=== PATIENT | female | born 1960 | race Caucasian/White ===

== ENCOUNTER 2022-04-15 07:51 | Outpatient (REF) | payer MEDICARE, MEDICAID, SELFPAY ==
--- NOTE | ~2022-04-15 | XR_ITS ---
EXAMINATION: 1. RADIOGRAPHS LEFT KNEE 2. RADIOGRAPHS RIGHT KNEE 3. RADIOGRAPHS STANDING BILATERAL AP KNEES CLINICAL INFORMATION: Knee pain COMPARISON: None TECHNIQUE: Standing AP views of both knees were obtained. Additional lateral and patellar sunrise views of each knee were also obtained. FINDINGS: Right knee: No fracture or dislocation. No suprapatellar joint effusion. Mild narrowing of the medial joint space height in addition to the patellofemoral joint space. No large osteophytes. No focal soft tissue swelling of the anterior knee. Left knee: No fracture or dislocation. No suprapatellar joint effusion. Mild narrowing of the medial joint space height in addition to the patellofemoral joint space. No large osteophytes identified. No focal soft tissue swelling of the anterior knee. XR/XR knee RT 2V IMPRESSION: Mild degenerative changes of both knees particularly involving the medial and patellofemoral compartments.
--- NOTE | ~2022-04-15 | XR_ITS ---
EXAMINATION: 1. RADIOGRAPHS LEFT KNEE 2. RADIOGRAPHS RIGHT KNEE 3. RADIOGRAPHS STANDING BILATERAL AP KNEES CLINICAL INFORMATION: Knee pain COMPARISON: None TECHNIQUE: Standing AP views of both knees were obtained. Additional lateral and patellar sunrise views of each knee were also obtained. FINDINGS: Right knee: No fracture or dislocation. No suprapatellar joint effusion. Mild narrowing of the medial joint space height in addition to the patellofemoral joint space. No large osteophytes. No focal soft tissue swelling of the anterior knee. Left knee: No fracture or dislocation. No suprapatellar joint effusion. Mild narrowing of the medial joint space height in addition to the patellofemoral joint space. No large osteophytes identified. No focal soft tissue swelling of the anterior knee. XR/XR knee standing BI IMPRESSION: Mild degenerative changes of both knees particularly involving the medial and patellofemoral compartments.
--- NOTE | ~2022-04-15 | XR_ITS ---
EXAMINATION: 1. RADIOGRAPHS LEFT KNEE 2. RADIOGRAPHS RIGHT KNEE 3. RADIOGRAPHS STANDING BILATERAL AP KNEES CLINICAL INFORMATION: Knee pain COMPARISON: None TECHNIQUE: Standing AP views of both knees were obtained. Additional lateral and patellar sunrise views of each knee were also obtained. FINDINGS: Right knee: No fracture or dislocation. No suprapatellar joint effusion. Mild narrowing of the medial joint space height in addition to the patellofemoral joint space. No large osteophytes. No focal soft tissue swelling of the anterior knee. Left knee: No fracture or dislocation. No suprapatellar joint effusion. Mild narrowing of the medial joint space height in addition to the patellofemoral joint space. No large osteophytes identified. No focal soft tissue swelling of the anterior knee. XR/XR knee LT 2V IMPRESSION: Mild degenerative changes of both knees particularly involving the medial and patellofemoral compartments.
== END 2022-04-15 07:52 | disposition home or self-care (01) ==
LOC: HO.HOSX 07:51
PROVIDERS: Visit Provider Orthopaedic Surgery
DX: M17.0 Bilateral primary osteoarthritis of knee (principal); G62.9 Polyneuropathy, unspecified
CPT/HCPCS: 20610; 73560; 73565; 99202; J1100

== ENCOUNTER → 2022-06-28 12:51 | Outpatient (BNVA) | payer MEDICARE, MEDICAID, SELFPAY | PROVIDERS: PCP Family Medicine; Visit Provider Nurse Practitioner Family | DX: G43.909 Migraine, unspecified, not intractable, without status migrainosus (principal); M54.2 Cervicalgia; R25.1 Tremor, unspecified; G47.9 Sleep disorder, unspecified | CPT/HCPCS: 99202 ==

== ENCOUNTER → 2022-09-06 13:30 | Outpatient (BNVA) | payer MEDICARE, MEDICAID, SELFPAY | PROVIDERS: PCP Family Medicine; Visit Provider Nurse Practitioner Family | DX: G43.909 Migraine, unspecified, not intractable, without status migrainosus (principal); M54.2 Cervicalgia; R25.1 Tremor, unspecified; Z79.899 Other long term (current) drug therapy | CPT/HCPCS: 99212 ==

== ENCOUNTER → 2022-11-22 14:30 | Outpatient (BNVA) | payer OTHER, SELFPAY | PROVIDERS: PCP Family Medicine; Visit Provider Nurse Practitioner Family | DX: G43.909 Migraine, unspecified, not intractable, without status migrainosus (principal); F90.9 Attention-deficit hyperactivity disorder, unspecified type; F41.9 Anxiety disorder, unspecified; M54.2 Cervicalgia | CPT/HCPCS: 99212 ==

== ENCOUNTER → 2023-10-26 15:54 | Outpatient (BNVA) | payer MEDICAID, SELFPAY | PROVIDERS: PCP Family Medicine; Visit Provider Nurse Practitioner Family ==

== ENCOUNTER 2023-11-09 13:01 | Outpatient (REF) | payer MEDICARE, MEDICAID, SELFPAY ==
--- NOTE | 2023-11-09 13:06 | EEG_ITS ---
FINDINGS: Waking background activity consists of a moderate voltage, well-defined, 10-hertz posterior alpha frequency that is seen symmetrically and attenuates well with eye opening while low voltage fast frequencies predominate anteriorly. Photic stimulation is without activation. Hyperventilation was omitted. No focal, lateralizing, or paroxysmal discharges are seen. IMPRESSION: This waking EEG is within normal limits. MD SERENITY Dacosta/ASYA / [phone]
== END 2023-11-09 13:02 | disposition home or self-care (01) ==
LOC: HO.NEURO 13:01
PROVIDERS: Visit Provider Nurse Practitioner Family
DX: R56.9 Unspecified convulsions (principal); G93.0 Cerebral cysts
CPT/HCPCS: 95816

== ENCOUNTER 2023-11-30 12:40 | Outpatient (AMB) | payer MEDICAID, SELFPAY ==
[2023-11-30 13:04] VITALS: BP 118/74; PULSE 70; O2SAT 96; BMI 28.5
--- NOTE | 2023-11-30 13:04 | MHC.OFFVIS ---
Intake Vital Signs 11/30/23 13:04 Height 5 ft 7 in Weight 182 lb 2 oz BMI 28.5 BP 118/74 Blood Pressure Location Rt brachial Position Sitting Pulse 70 Pulse Source Pulse Oximeter Pulse Oximetry (%) 96 Oxygen Delivery Method Room Air Intake Visit Reasons: follow up-Confirmed Intake Note: Patient presents for follow up. I had a seizure and she started me on the meds. Allergies omeprazole Allergy (Verified 11/30/23 13:07) Hives Penicillins Allergy (Verified 11/30/23 13:07) Hives Sulfa (Sulfonamide Antibiotics) Allergy (Verified 11/30/23 13:07) Hives Medication List - Last Reconciled 11/30/23 by YOANNA Maya albuterol sulfate 90 mcg/actuation (Ventolin HFA) 2 puffs inhalation Q4-6H PRN atorvastatin 40 mg PO DAILY 90 days baclofen 10 - 20 mg (1 - 2 x 10 mg) PO BID 30 days bupropion HCl 300 mg PO DAILY 90 days cyclosporine 0.05% naeem ophthalmic (eye) famotidine 40 mg PO BID fluticasone propionate 44 mcg/actuation (Flovent HFA) inhalation furosemide 0 mg PO gabapentin 400 mg PO BEDTIME 30 days galcanezumab-gnlm (Emgality Pen) 120 mg subcut ONCE 30 days ibuprofen 1,200 mg PO BID PRN levetiracetam (Keppra) 500 mg PO Q12H 30 days loratadine-pseudoephedrine 10-240 mg ER (Allergy Relief and Nasal Decongestant) 0 tabs PO magnesium oxide 400 mg PO BEDTIME 30 days nicotine 1 patch transdermal DAILY PRN ondansetron 2 mg PO Q6-8H PRN ondansetron 8 mg PO Q8H PRN 30 days riboflavin (vitamin B2) 400 mg PO DAILY 30 days rimegepant (Nurtec ODT) 75 mg PO Q OTHER DAY PRN 32 days rizatriptan 5 - 10 mg (0.5 - 1 x 10 mg) PO Q2H PRN 21 days HPI HPI Comments History of Present Illness Details 63-yr-old female presents for f/u visit. Pt denies any significant interval medical changes. Pt does think that she has a UTI or kidney infection, she has had increased urinary frequency and urgency x's the past month or more. Denies back pain or dysuria. Not sure if she has a fever- can feel hot or cold- for quite some time- thinks maybe menopausal s/s. She states she is prone to UTIs and has also had h/o kidney infection. Baseline EEG- was normal F/u 48 hr EEG has been scheduled for 12/04/23 She has not heard anything on the requested MRI. Denies any interval seizures. She has started Keppra 500mg bid- tolerating well She is hoping to try an alternate to baclofen for muscle spasms- as baclofen has not helped. In the past she tried Lorazepam, which helped sleep and anxiety. [facility] Medical History (Reviewed 11/22/22 @ 14:53 by Anika Caballero [facility]) Anemia Arthritis Asthma GERD (gastroesophageal reflux disease) Thyroid disease Surgical History H/O tubal ligation History of cholecystectomy Family History Mother Diabetes Breast cancer TIA (transient ischemic attack) Father Cancer Social History Alcohol intake: current Alcohol intake frequency: holidays/special occasions only Patient Tobacco Use Status: Former Tobacco user Quit Date: 09/04/2022 Substance Use Type: Marijuana Current occupational status: disabled Review of Systems Const All systems reviewed & are unremarkable except as noted in HPI and below Physical Exam Vital Signs: Last Vital Signs Pulse 70 11/30/23 13:04 BP 118/74 11/30/23 13:04 Pulse Ox 96 11/30/23 13:04 Oxygen Delivery Method Room Air 11/30/23 13:04 BMI result Body Mass Index 28.5 Const General: cooperative and no acute distress Orientation/consciousness: patient oriented x3 HEENT Head: Yes normocephalic Resp Effort & Inspection: normal respiratory effort and able to speak in complete sentences Neuro General: patient oriented x3, gait normal and CN's II-XI intact bilaterally Cognition (Neuro): normal cognition Motor exam (neuro): 5/5 motor strength present throughout Psych Appearance: grossly normal Mental Status: mental status grossly normal Speech and movement: Normal speech and movement present Affect: normal affect Attitude: cooperative Thought process: Normal thought process present Assessment & Plan Assessment & Plan (1) Seizure: Code(s): R56.9 - Unspecified convulsions (2) Arachnoid cyst: Code(s): G93.0 - Cerebral cysts (3) Sleep disorder: Code(s): G47.9 - Sleep disorder, unspecified (4) Migraine: Code(s): G43.909 - Migraine, unspecified, not intractable, without status migrainosus Plan Pt has not done requested CBC, CMP- suggested she do this today as this could indicate if she has an active infection, however pt requests to wait to have labs done until next month when she meets her new PCP. Pt advised to f/u w/ PCP or urgent care regarding her ongoing urinary s/s. Continue Keppra 500mg bid. Continue to wean off Baclofen use to no more than 10mg qhs- as baclofen may lower seizure threshold. Consider changing to low dose diazepam upon review of 48 hr EEG. May continue Buproprion for now- will re-assess after work-up complete. 48 hr EEG as scheduled Will f/u on order for Brain MRI w/wo Again check CBC, CMP- lab slips given to pt. Pt advised to NOT drive or engage in high-risk activities (swimming/tub bathing alone, climbing ladders, operating heavy machinery) x's 6 months after last known seizure. f/u upon review of above and appt in 3-4 months or sooner prn. Coding Level of Care Code Est Pt Level 4 (24974) Diagnoses Seizure R56.9 Arachnoid cyst G93.0 Sleep disorder G47.9 Migraine G43.903
== END 2023-11-30 13:47 | disposition home or self-care (01) ==
PROVIDERS: PCP Family Medicine; Visit Provider Nurse Practitioner Family
DX: R56.9 Unspecified convulsions (principal); G93.0 Cerebral cysts; G47.9 Sleep disorder, unspecified; G43.909 Migraine, unspecified, not intractable, without status migrainosus
CPT/HCPCS: 99214

== ENCOUNTER → 2023-11-30 12:40 | Outpatient (BNVA) | payer MEDICARE, MEDICAID, SELFPAY | PROVIDERS: PCP Family Medicine; Visit Provider Nurse Practitioner Family | DX: R56.9 Unspecified convulsions (principal); G93.0 Cerebral cysts; G47.9 Sleep disorder, unspecified; G43.909 Migraine, unspecified, not intractable, without status migrainosus | CPT/HCPCS: 99212 ==

== ENCOUNTER 2024-04-01 13:01 | Outpatient (AMB) | payer MEDICARE, MEDICAID, SELFPAY ==
--- NOTE | 2024-04-01 13:01 | MHC.OFFVIS ---
Intake Visit Reasons: 4 mo f/u-Unable to lvm Allergies omeprazole Allergy (Verified 04/01/24 13:01) Hives Penicillins Allergy (Verified 04/01/24 13:01) Hives Sulfa (Sulfonamide Antibiotics) Allergy (Verified 04/01/24 13:01) Hives Medication List - Last Reconciled 04/01/24 by YOANNA Maya albuterol sulfate 90 mcg/actuation (Ventolin HFA) 2 puffs inhalation Q4-6H PRN atorvastatin 40 mg PO DAILY 90 days baclofen 10 - 20 mg (1 - 2 x 10 mg) PO BID 30 days bupropion HCl XL 300 mg PO DAILY 90 days cyclosporine 0.05% drps ophthalmic (eye) famotidine 40 mg PO BID fluticasone propionate 44 mcg/actuation (Flovent HFA) inhalation furosemide 0 mg PO gabapentin 400 mg PO BEDTIME 30 days galcanezumab-gnlm (Emgality Pen) 120 mg subcut ONCE 30 days ibuprofen 1,200 mg PO BID PRN levetiracetam (Keppra) 500 mg PO Q12H 30 days loratadine-pseudoephedrine 10-240 mg ER (Allergy Relief and Nasal Decongestant) 0 tabs PO magnesium oxide 400 mg PO BEDTIME 30 days nicotine 1 patch transdermal DAILY PRN ondansetron 2 mg PO Q6-8H PRN ondansetron 8 mg PO Q8H PRN 30 days riboflavin (vitamin B2) 400 mg PO DAILY 30 days rimegepant (Nurtec ODT) 75 mg PO Q OTHER DAY PRN 32 days rizatriptan 5 - 10 mg (0.5 - 1 x 10 mg) PO Q2H PRN 21 days HPI Comments Details: 64-yr-old female presents for f/u televideo visit via [employer] Pt denies any significant interval medical changes. Pt reports she has been having dizziness, more difficulty breathing, and sore throat- for at least a month. She also has been having nausea. And last week the dizziness increased and caused her to vomit. She feels her walking off when she walks her dog. Sometimes her foot will go off the curb. She wonders if the above s/s are d/t her keppra dose. She also notes she been taking Ibuprofen 800mg qd-bid prn- over the last week. She has been having migraines- she has been using the rizatriptan again. Notes that the Nurtec was previously more effective. She has been having a daily headache in the last week. Typically has 14 migraine headache days per month. Migraine characteristics: Prodrome symptoms: May have some awareness that a headache comes about 1-2 hrs before the headache comes on. Aura: May see floaters as headache is starting and persists. Vision may be blurry. Headache: Mild to Severe, Headache typically starts in occipital region and moves into frontal region. The pain is throbbing and stabbing a/w photophobia, phonophobia, blurry vision, ? nausea, brain fog, dizziness, activity intolerance. Postdrome: Fatigue PFSH Medical History Anemia Arthritis Asthma GERD (gastroesophageal reflux disease) Thyroid disease Surgical History H/O tubal ligation History of cholecystectomy Family History Mother Diabetes Breast cancer TIA (transient ischemic attack) Father Cancer Social History Alcohol intake: current Alcohol intake frequency: holidays/special occasions only Patient Tobacco Use Status: Former Tobacco user Quit Date: 09/04/2022 Substance Use Type: Marijuana Current occupational status: disabled Physical Exam Const General: cooperative and no acute distress Orientation/consciousness: patient oriented x3 Resp Effort & Inspection: normal respiratory effort and able to speak in complete sentences Neuro General: patient oriented x3 Cognition (Neuro): normal cognition Psych Appearance: grossly normal Mental Status: mental status grossly normal Speech and movement: Normal speech and movement present Affect: normal affect Attitude: cooperative Telehealth Telehealth Telehealth Platform: [employer] (P)[facility] Location of provider rendering services: practice address Location of patient: address on file Patient Identification confirmed using: Name, : Yes Telehealth method: voice only Patient verbally consented to treatment: Yes Patient verbally consented to billing insurance company: Yes Patient informed of any privacy concerns related to visit: Yes Minutes spent on Phone/Video with Pt.: 24 Assessment & Plan Assessment & Plan (1) Migraine without aura: Code(s): G43.009 - Migraine without aura, not intractable, without status migrainosus Category: Medical (2) Arachnoid cyst: Code(s): G93.0 - Cerebral cysts Category: Medical (3) Seizure: Code(s): R56.9 - Unspecified convulsions Category: Medical (4) ADHD: Code(s): F90.9 - Attention-deficit hyperactivity disorder, unspecified type Category: Medical Plan Baseline EEG. Pt has not yet has barin MRI w/wo or 48hr EEG- pt agrees to have these done. Pt has not had labs done yet. Discussed trying Oxcarbazapine (150mg bid x's 2 wks, then 300mg bid) in place of Keppra 500mg bid, as pt does not want to continue it. However pt states she will continue Keppra for now. Pt advised to NOT drive or engage in high-risk activities (swimming/tub bathing alone, climbing ladders, operating heavy machinery) x's 6 months after last known seizure. For acute migraine treatment: Rizatriptan 5-10 mg at onset of migraine, may repeat in 2 hours.? May adjunct with ibuprofen. Zofran 8mg ODT prn. Previous trials: Sumatriptan- ineffective. Future considerations- Ubrelvy. Sumatriptan- ineffective. For migraine prevention treatment: Continue riboflavin 400 mg daily in the morning.? Continue magnesium oxide 400 mg daily at bedtime.? Resume Nurtec ODT 75mg qod- as pt previously good effect. Pt never tried Emgality- she is needle phobic. Continue gabapentin 400 mg daily at bedtime- also for cervicalgia, tremor, muscle spasms. (higher doses make her legs shaky) Previous preventative medication use: Amitriptyline- stopped on transfer, not effective. Topiramate- was either not tolerated or ineffective. Will f/u on status of psych consult- for her ADD s/s management. f/u upon review of above and appt in 6 months or sooner prn. Medications: Refilled ondansetron 8 mg PO Q8H 30 days PRN 24 tabs 2RF nausea and vomiting rizatriptan max 2 tabs per day or 4 tabs per week 5 - 10 mg (0.5 - 1 x 10 mg) PO Q2H 21 days PRN 12 tabs 6RF migraine headache levetiracetam (Keppra) 500 mg PO Q12H 30 days 60 tabs 6RF Discontinued levetiracetam (Keppra) Discontinued Reason: Doctor's Order 500 mg PO Q12H 30 days 60 tabs 6RF galcanezumab-gnlm (Emgality Pen) Discontinued Reason: Patient no longer taking 120 mg subcut ONCE 30 days 1 mL 6RF G43.909 - Migraine, unspecified, not intractable, without status migrainosus Coding Level of Care Code Tele Est Pt Level 4 (46631) Diagnoses Migraine without aura G43.009 Arachnoid cyst G93.0 Seizure R56.9 ADHD F90.9
== END 2024-04-01 13:30 | disposition home or self-care (01) ==
LOC: HO.HSMS 13:01
PROVIDERS: PCP Family Medicine; Visit Provider Nurse Practitioner Family
DX: G43.009 Migraine without aura, not intractable, without status migrainosus (principal); G93.0 Cerebral cysts; R56.9 Unspecified convulsions; F90.9 Attention-deficit hyperactivity disorder, unspecified type
CPT/HCPCS: 99443

== ENCOUNTER → 2024-04-01 13:01 | Outpatient (BNVA) | payer MEDICARE, MEDICAID, SELFPAY | PROVIDERS: PCP Family Medicine; Visit Provider Nurse Practitioner Family ==

== ENCOUNTER 2024-10-22 10:18 | Outpatient (AMB) | payer MEDICARE, MEDICAID, SELFPAY ==
[2024-10-22 10:20] VITALS: BP 126/70; PULSE 84; O2SAT 98; BMI 28.2
--- NOTE | 2024-10-22 10:20 | A.OFFVIS_ITS ---
Vital Signs 10/22/24 10:20 Height 5 ft 7 in Weight 180 lb BMI 28.2 BP 126/70 Blood Pressure Location Rt brachial Position Sitting Pulse 84 Pulse Source Pulse Oximeter Pulse Oximetry (%) 98 Oxygen Delivery Method Room Air Intake Visit Reasons: 7 month F/U [employer] Required: No Accompanied by: Self / Same As Patient Allergies omeprazole Allergy (Verified 10/22/24 10:22) Hives Penicillins Allergy (Verified 10/22/24 10:22) Hives Sulfa (Sulfonamide Antibiotics) Allergy (Verified 10/22/24 10:22) Hives Medication List - Last Reconciled 10/22/24 by YOANNA Maya albuterol sulfate 90 mcg/actuation (Ventolin HFA) 2 puffs inhalation Q4-6H PRN atorvastatin 40 mg PO DAILY 90 days baclofen 10 - 20 mg (1 - 2 x 10 mg) PO BID 30 days bupropion HCl XL 300 mg PO DAILY 90 days cyclosporine 0.05% drps ophthalmic (eye) famotidine 40 mg PO BID PRN fluticasone propionate 44 mcg/actuation (Flovent HFA) inhalation furosemide 0 mg PO gabapentin 400 mg PO TID 30 days ibuprofen 1,200 mg PO BID PRN levetiracetam (Keppra) 500 mg PO Q12H 30 days loratadine-pseudoephedrine 10-240 mg ER (Allergy Relief and Nasal Decongestant) 0 tabs PO magnesium oxide 400 mg PO BEDTIME 30 days nicotine 1 patch transdermal DAILY PRN ondansetron 2 mg PO Q6-8H PRN ondansetron 8 mg PO Q8H PRN 30 days riboflavin (vitamin B2) 400 mg PO DAILY 30 days rimegepant (Nurtec ODT) 75 mg PO Q OTHER DAY 30 days rizatriptan 5 - 10 mg (0.5 - 1 x 10 mg) PO Q2H PRN 21 days HPI Comments Details: 64-yr-old female presents for f/u visit of migraine and seizure She states that she had an interval seizure on 07/24/24- she was sitting outside on a bench, she began to feel dizzy, jaw clenching, and LOC. She was evaluated at [facility] ER. She was not taking the Keppra at that time. She now notes that both seizure episodes were preceded by [employer] cannabis use (from a dispensary). She reports the Keppra is causing fatigue, loose stools. She has not had ambulatory or brain MRI yet. She is prone to not sleeping well. She feels her pain keeps her up at night. Keppra does sometimes help her to fall asleep. She did she someone for sleep- was advised to optimize sleep hygiene- including not staying in bed awake > 10 minutes. She has a h/o working 11pm-7:30am for years. Considers herself a night owl. She is having neck and back muscle spasms as well. She is taking Ibuprofen 600mg and Tylenol 1000mg every day for body pain. She states her migraines are not as bad as they were. She has not had her [facility] new new prior authorization, however it has been approved indefinitely. She has been having a daily headache in the last week. Typically has 14 migraine headache days per month when not on preventative therapy. Migraine characteristics: Prodrome symptoms: May have some awareness that a headache comes about 1-2 hrs before the headache comes on. Aura: May see floaters as headache is starting and persists. Vision may be blurry. Headache: Mild to Severe, Headache typically starts in occipital region and moves into frontal region. The pain is throbbing and stabbing a/w photophobia, phonophobia, blurry vision, ? nausea, brain fog, dizziness, activity intoleranc e. Postdrome: Fatigue [facility] Medical History (Updated 10/22/24 @ 11:15 by YOANNA Maya) Thyroid disease Anemia Asthma Arthritis GERD (gastroesophageal reflux disease) Surgical History H/O tubal ligation History of cholecystectomy Family History Mother Diabetes Breast cancer TIA (transient ischemic attack) Father Cancer Social History Alcohol intake: current Alcohol intake frequency: holidays/special occasions only Patient Tobacco Use Status: Former Tobacco user Substance Use Type: Marijuana Current occupational status: disabled Physical Exam Vital Signs: Last Vital Signs Pulse 84 10/22/24 10:20 BP 126/70 10/22/24 10:20 Pulse Ox 98 10/22/24 10:20 Oxygen Delivery Method Room Air 10/22/24 10:20 BMI result Body Mass Index 28.2 Const General: cooperative, no acute distress and tired appearing Orientation/consciousness: patient oriented x3 HEENT Head: Yes normocephalic Resp Effort & Inspection: normal respiratory effort and able to speak in complete sentences Neuro General: patient oriented x3 Cognition (Neuro): normal cognition Psych Appearance: grossly normal Mental Status: mental status grossly normal Affect: normal affect Attitude: cooperative Thought process: Normal thought process present Assessment & Plan Assessment & Plan (1) Seizure: Code(s): R56.9 - Unspecified convulsions Category: Medical (2) Migraine without aura: Code(s): G43.009 - Migraine without aura, not intractable, without status migrainosus Category: Medical (3) Arachnoid cyst: Code(s): G93.0 - Cerebral cysts Category: Medical (4) ADHD: Code(s): F90.9 - Attention-deficit hyperactivity disorder, unspecified type Category: Medical Plan Procedure activity: Baseline EEG- Please let patient know that recent EEG results were normal. Patient again advised to undergo brain MRI w/wo and ambulatory EEG (will decrease duration to 24 hour)- pt agrees to have these done. Again check labs. Start topiramate 25 mg b.i.d. x2 weeks, then 50 mg b.i.d. x2 weeks. We will check in with patient at 3-4 week nehal, if tolerated well will increase to 150 mg b.i.d. x2 weeks then goal dose of 200 mg b.i.d. for seizure prevention. Reviewed common side effects of topiramate. May decrease Keppra to 500 mg daily x1 week, then discontinue. Pt advised to NOT drive or engage in high-risk activities (swimming/tub bathing alone, climbing ladders, operating heavy machinery) x's 3 months after adjusting seizure medications, and 6 months following any type of seizure activity. For back spasms: Stop baclofen, ineffective. Trio diazepam 2 mg q.h.s. p.r.n., as this has less risk for exacerbating seizure activity. For acute migraine treatment: Rizatriptan 5-10 mg at onset of migraine, may repeat in 2 hours.? May adjunct with ibuprofen. Zofran 8mg ODT prn. Previous trials: Sumatriptan- ineffective. Future considerations- Ubrelvy. Sumatriptan- ineffective. For migraine prevention treatment: Continue riboflavin 400 mg daily in the morning.? Continue magnesium oxide 400 mg daily at bedtime.? Resume Nurtec ODT 75mg qod- as pt previously good effect. Patient's prior authorization is good indefinitely at this point. Pt never tried Emgality- she is needle phobic. Continue gabapentin 400 mg t.i.d.- also for cervicalgia, tremor, muscle spasms. (higher doses make her legs shaky) Previous preventative medication use: Amitriptyline- stopped on transfer, not effective. Topiramate- was either not tolerated or ineffective. In follow-up, check status of psych consult- for her ADD s/s management. f/u upon review of above and appt in 6 months or sooner prn. Orders: Orders Comprehensive Met. Panel Today D64.9 - Anemia, unspecified, E07.9 - Disorder of thyroid, unspecified, R56.9 - Unspecified convulsions Hemoglobin A1c Today D64.9 - Anemia, unspecified, E07.9 - Disorder of thyroid, unspecified, R56.9 - Unspecified convulsions Vitamin B12 and Folate Today D64.9 - Anemia, unspecified, E07.9 - Disorder of thyroid, unspecified, R56.9 - Unspecified convulsions Homocysteine Today D64.9 - Anemia, unspecified, E07.9 - Disorder of thyroid, unspecified, R56.9 - Unspecified convulsions Methylmalonic Acid Today D64.9 - Anemia, unspecified, E07.9 - Disorder of thyroid, unspecified, R56.9 - Unspecified convulsions Ferritin Today D64.9 - Anemia, unspecified, E07.9 - Disorder of thyroid, unspecified, R56.9 - Unspecified convulsions IRON PROFILE Today D64.9 - Anemia, unspecified, E07.9 - Disorder of thyroid, unspecified, R56.9 - Unspecified convulsions Magnesium Today M62.838 - Other muscle spasm, R56.9 - Unspecified convulsions MR head/brain wo/w con Today D64.9 - Anemia, unspecified, E07.9 - Disorder of thyroid, unspecified, R56.9 - Unspecified convulsions Complete Blood Count Auto Diff Today D64.9 - Anemia, unspecified, E07.9 - Disorder of thyroid, unspecified, R56.9 - Unspecified convulsions TSH reflex Free T4 Today D64.9 - Anemia, unspecified, E07.9 - Disorder of thyroid, unspecified, R56.9 - Unspecified convulsions Creatine Kinase Total Today M62.838 - Other muscle spasm, R56.9 - Unspecified convulsions EEG ambulatory Today R56.9 - Unspecified convulsions Medications: New topiramate 25mg bid x's 2 weeks, then 50mg bid x's 2 weeks orally 2 times a day; 30 days 84 tabs 0RF R56.9 - Unspecified convulsions diazepam 2 mg PO DAILY 30 days PRN 30 tabs 1RF muscle spasm Refilled rimegepant (Nurtec ODT) 75 mg PO Q OTHER DAY 30 days 16 tabs 6RF migraine he adache gabapentin 400 mg PO TID 30 days 90 caps 6RF R56.9 - Unspecified convulsions Coding Level of Care Code Est Pt Level 4 (76962) Complex EM visit Add On G2211 Diagnoses Seizure R56.9 Migraine without aura G43.009 Arachnoid cyst G93.0 ADHD F90.9
== END 2024-10-22 11:26 | disposition home or self-care (01) ==
PROVIDERS: PCP Family Medicine; Visit Provider Nurse Practitioner Family
DX: R56.9 Unspecified convulsions (principal); G43.009 Migraine without aura, not intractable, without status migrainosus; G93.0 Cerebral cysts; F90.9 Attention-deficit hyperactivity disorder, unspecified type
CPT/HCPCS: 99214; G2211

== ENCOUNTER → 2024-10-22 10:18 | Outpatient (BNVA) | payer MEDICARE, MEDICAID, SELFPAY | PROVIDERS: PCP Family Medicine; Visit Provider Nurse Practitioner Family | DX: G43.009 Migraine without aura, not intractable, without status migrainosus (principal); R56.9 Unspecified convulsions; G93.0 Cerebral cysts; F90.9 Attention-deficit hyperactivity disorder, unspecified type | CPT/HCPCS: 99212 ==